=== PATIENT | female | born 1945 | race Caucasian/White ===

== ENCOUNTER 2019-05-14 15:16 | Inpatient (IN) | payer OTHER ==
[~2019-05-14] VITALS: Ht 170.2 cm; Wt 86.7 kg
[2019-05-14 16:07] LABS: Basophils # (auto) 0.1 uL; Basophils % (auto) 0.3 % (0.0-2.0); Eosinophils # (auto) 0 uL; Hematocrit 52.2 % (36.0-46.0); Hemoglobin 17.1 g/dL (12.2-16.2); Mean Corpuscular Hemoglobin 31.7 pg (28.0-32.0); Mean Corpuscular Hgb Conc. 32.8 g/dL (32.0-36.0); Mean Corpuscular Volume 96.7 fL (80.0-100.0); Monocytes % (auto) 4.8 % (0.0-12.0); Neutrophils # (auto) 15.9 uL; Neutrophils % (auto) 79.9 % (37.0-80.0); Nucleated Red Blood Cells % 0.1 %; Platelet Count (auto) 259 10^3/uL (140-450); Red Cell Distribution Width 14.4 % (11.8-14.3); White Blood Cell 19.9 10^3/uL (4.4-10.8)
[2019-05-14] MEDS ORDERED: PROMETHAZINE HCL 25 MG/ML 1ML IV ONE (16:15)
[2019-05-14] MEDS ORDERED: HYDROmorphone HCL 2 MG/ML VL IV ONE ×2 (16:15→21:30)
[2019-05-14] MEDS ORDERED: SODIUM CHLORIDE 0.9% 1,000 ML IVB ONE (16:59)
[2019-05-14 17:11] LABS: Alanine Aminotransferase 15 U/L (13-56); Albumin 3.4 g/dL (3.4-5.0); Amylase 74 U/L (25-115); Anion Gap 15 (5-15); Aspartate Aminotransferase 15 U/L (15-37); BUN/Creatinine Ratio 17.3; Blood Urea Nitrogen 17 mg/dL (7-18); Carbon Dioxide 16 mmol/L (21-32); Chloride 105 mmol/L (98-107); GFR African American 72 mL/min; GFR Non-African American 59 mL/min; Glucose 195 mg/dL (74-106); Lipase 59 U/L (73-393); Potassium 4.2 mmol/L (3.5-5.1); Sodium 136 mmol/L (136-145)
[2019-05-14] MEDS ORDERED: cefTRIAXone 1GM/50ML D5W 50 ML IV ONE (17:15)
[2019-05-14] MEDS ORDERED: metroNIDAZOLE 500MG/100ML 100 ML IV ONE (17:15)
[2019-05-14 17:16] LABS: Alkaline Phosphatase 67 U/L (45-117); Bilirubin, Total 0.3 mg/dL (0.2-1.0); Total Protein 7.1 g/dL (6.4-8.2)
[2019-05-14 17:43] LABS: INR 0.99 (0.9-1.15)
[2019-05-14] MEDS ORDERED: OMNIPAQUE ORAL SOLN 500ml 12mg/ml PO ONE (17:48)
[2019-05-14] MEDS ORDERED: IOHEXOL 300 MG/ML 100ML BOTTLE IJ ONE (17:48)
[2019-05-14] MEDS ORDERED: ONDANSETRON HCL 4 MG/2 ML VIAL ONE (18:23)
[2019-05-14] MEDS ORDERED: ONDANSETRON HCL 4 MG/2 ML VIAL IV ONE ×2 (18:30→21:30)
[2019-05-14] MEDS ORDERED: SODIUM CHLORIDE 0.9% 1,000 ML IV ONE (18:45)
[2019-05-14] MEDS ORDERED: SODIUM CHLORIDE 0.9% 500 ML IV ONE (18:45)
[2019-05-14 23:01] LABS: Urine Bacteria NONE SEEN /hpf (None Seen); Urine Blood Negative /uL (Negative); Urine Mucus FEW (None Seen); Urine WBC 2 /hpf (0 - 5)
[2019-05-14 23:08] LABS: Urine Specific Gravity > 1.050 (1.001-1.035)
[2019-05-14] MEDS: NOREPINEPHRINE 8 MG/250ML KIT 250 ML IV SCH (23:26)
[2019-05-15] VITALS (55 sets, daily range): BP systolic 74–144; BP diastolic 41–64
[2019-05-15] MEDS ORDERED: MORPHINE SULFATE 4 MG/ML SYR/VIAL IV ONE ×2 (00:15→05:15)
[2019-05-15] MEDS ORDERED: ONDANSETRON HCL 4 MG/2 ML VIAL IV ONE ×2 (00:15→05:15)
[2019-05-15] MEDS ORDERED: SODIUM CHLORIDE 0.9% 1,000 ML IV ONE ×2 (00:30→11:00)
[2019-05-15 01:42] LABS: Lactic Acid w/Reflex 6.6 mmol/L (0.4-2.0)
[2019-05-15] MEDS ORDERED: PIPERACILLIN-TAZOB 3.375GM 100 ML IV ONE ×2 (03:00→07:15)
[2019-05-15] MEDS ORDERED: SODIUM BICARBONATE 8.4 % INJ 50ML VIAL IV ONE ×2 (04:30→15:15)
[2019-05-15 04:36] LABS: Basophils # (auto) 0.1 uL; Basophils % (auto) 0.3 % (0.0-2.0); Eosinophils # (auto) 0 uL; Hematocrit 55.1 % (36.0-46.0); Hemoglobin 17.2 g/dL (12.2-16.2); Lymphocytes % (auto) 10.2 % (10.0-50.0); Mean Corpuscular Hemoglobin 31.5 pg (28.0-32.0); Mean Corpuscular Hgb Conc. 31.2 g/dL (32.0-36.0); Mean Corpuscular Volume 100.8 fL (80.0-100.0); Monocytes # (auto) 1.7 uL; Monocytes % (auto) 8.6 % (0.0-12.0); Neutrophils # (auto) 15.7 uL; Neutrophils % (auto) 80.9 % (37.0-80.0); Nucleated Red Blood Cells % 0.1 %; Platelet Count (auto) 226 10^3/uL (140-450); Red Blood Cells 5.46 10^6/uL (4.0-5.20); Red Cell Distribution Width 15.5 % (11.8-14.3); White Blood Cell 19.5 10^3/uL (4.4-10.8)
[2019-05-15] MEDS: NOREPINEPHRINE 8 MG/250ML KIT 250 ML IV SCH (05:00)
[2019-05-15] MEDS ORDERED: ONDANSETRON HCL 4 MG/2 ML VIAL IV PRN ×2 (05:45→09:45)
[2019-05-15] MEDS ORDERED: VASOPRESSIN 20 UNIT/ML ONE ×2 (06:05)
[2019-05-15] MEDS: VASOPRESSIN 50 UNITS in D5W 5% 247.5 ML IV SCH (06:15)
[2019-05-15] MEDS: HEPARIN SODIUM (PORCINE) 5000 UNITS/ML 1ML VIAL SC SCH ×3 (06:30→22:00)
[2019-05-15] MEDS ORDERED: VANCOMYCIN PER PHARMACY 0 MG IV SCH ×2 (07:00)
[2019-05-15] MEDS ORDERED: DEXTROSE (50%) 50ML SYRG IV PRN (07:00)
[2019-05-15] MEDS: SODIUM CHLORIDE 0.9% 1,000 ML IV SCH ×3 (07:13→23:49)
[2019-05-15] MEDS: PHENYLEPHRINE INJ 20 MG in D5W 5% 250 ML IV SCH ×3 (07:15→23:43)
[2019-05-15 07:50] LABS: Albumin 2.6 g/dL (3.4-5.0); Calcium 7.5 mg/dL (8.5-10.1); Potassium 5.5 mmol/L (3.5-5.1)
[2019-05-15 07:53] LABS: BUN/Creatinine Ratio 15.9; Bilirubin, Total 0.3 mg/dL (0.2-1.0)
[2019-05-15] MEDS ORDERED: LIDOCAINE 1% (LOCAL ANESTH.) PF 5ml SDV ONE (08:59)
[2019-05-15] MEDS ORDERED: SUCCINYLCHOLINE CHLORIDE 20 MG/ML 10ML VIAL IV ONE (08:59)
[2019-05-15] MEDS ORDERED: VANCOMYCIN 1GM/250ML 250 ML IV SCH (09:00)
[2019-05-15] MEDS ORDERED: ROCURONIUM 10MG/ML 10ML VIAL IV ONE (09:41)
[2019-05-15] MEDS ORDERED: MIDAZOLAM HCL 1MG/1ML-2 ML VIAL ONE ×2 (09:41→10:41)
[2019-05-15] MEDS ORDERED: ETOMIDATE (2MG/ML) 20ML VIAL IV ONE (09:42)
[2019-05-15] MEDS ORDERED: MIDAZOLAM HCL 1MG/1ML-2 ML VIAL IV PRN (09:45)
[2019-05-15] MEDS ORDERED: HYDROmorphone HCL 2 MG/ML VL IV PRN (09:45)
[2019-05-15] MEDS ORDERED: metroNIDAZOLE 500MG/100ML 100 ML IV ONE (10:21)
[2019-05-15] MEDS ORDERED: fentaNYL CITRATE 100 MCG/2 ML VL ONE (10:32)
[2019-05-15] MEDS ORDERED: POVIDONE IODINE 5% TOPICAL CREAM TOP ONE (10:47)
--- NOTE | 2019-05-15 11:25 | NUR ---
POST OP PATIENT ACCEPTED. BEDSIDE REPORT RECEIVED ALONG WITH ANESTHESIOLOGIST. [id number] PATIENT ON MECHANICAL VENTILATOR, MODERATELY SEDATED FROM OR MEDS. ETT 7.0 22 LIP AC 14 TV 500 FI02 60% PEEP 5. LUNGS CLEAR THROUGHT OUT, EVEN, NON LABORED BREATHING NOTED. BP 140/61 FROM LEFT RADIAL ARTERIAL LINE, ON PRESSURE BAG, PT ON LEVOPHED AND VASOPRESSIN. SEE IV SPREADSHEET. HEART RATE SR. OG NOTED ORALLY, CONNECTED TO LIS, DARK THICK BLOODY SECRETIONS NOTED, WITH APPROX 25CC IN CANISTER, ABD SOFT, ABSENT BOWEL SOUNDS. SCHREIBER DRAINING TO GRAVITY, YELLOW CLEAR URINE APPROX 130CC IN BAG NOTED REPORTED FROM THIS A.M. SURGICAL DRESSING NOTED TO MID ABD, CDI. WITH ROLAND DRAIN NOTED, SEROSANGUINEOUS FLUID NOTED AND DRAINED 75CC. ALL EXTREMITIES NOTED TO HAVE WEAK PULSES, AND COLD TO TOUCH, BLANKET APPLIED TO PATIENT, CURRENT TEMP 98.9. ALL SKIN INTACT. PT TURNED SLIGHTLY TO RIGHT WITH SUPPORT OF PILLOW AND HEELS OFF LOADED. IV TO RIGHT IJ TLC CDI. LEFT HAND 18G INFUSING NS, PATENT AND INTACT. RIGHT WRIST 20G, PRESSURE NOTED DURING NS FLUSH. IV DC'D. CATHETER INTACT, PRESSURE APPLIED. SCD'S IN PLACE. PAGED TO OBTAIN SEDATION, PULMONARY CONSULT. CALLED BACK, NEW ORDERS IN PLACE.
[2019-05-15] MEDS: PROPOFOL 100 ML IV SCH (11:51)
[2019-05-15] MEDS ORDERED: PIPERACILLIN-TAZOB 3.375GM 100 ML IV SCH (12:00)
[2019-05-15] MEDS: InsuLIN REG 1unit/0.01ml Soln (100units/ml) SC SCH ×3 (12:00→23:53)
[2019-05-15] MEDS: ACCU-CHEK COMFORT CURVE STRIP VI SCH ×3 (12:00→23:53)
[2019-05-15] MEDS: MIDAZOLAM DRIP 50 mg/50mL 50 ML IV SCH ×3 (12:14→21:03)
[2019-05-15] MEDS: fentaNYL Drip 2500mCg/250mlNS 250 ML IV SCH (12:14)
--- NOTE | 2019-05-15 13:00 | NUR ---
NEURO STATUS/COMFORT PATIENT ON VERSED AND FENT GTT, SEE IV SPREADSHEET. SEDATION INCREASED SHE IS CALM- DROWSY. PT ATTEMPTING TO COMMUNICATE WITH HANDS, MOUTHING WORDS, INSTRUCTED PATIENT TO REFRAIN FROM TALKING AT THIS TIME SHE CAN CAUSE HARM, PT AGREED BUT CONTINUES TO ATTEMPT TO TALK. PT COUGHING AGAINST VENTILATOR AND WORSENING PAIN TO ABD. OCCASIONALLY PT NOT SYNCHRONIZED ON VENT. SEDATION INCREASED.
[2019-05-15] MEDS: PIPERACILLIN-TAZOB 3.375GM 100 ML IV SCH ×3 (13:50→23:53)
[2019-05-15] MEDS ORDERED: NOREPINEPHRINE 8 MG/250ML KIT 250 ML IV ONE (14:30)
--- NOTE | 2019-05-15 15:00 | NUR ---
PULMONARY CONSULT MD AT BEDSIDE AWARE OF F/U ABG. NEW ORDERS IN PLACE. R.T AWARE OF ETT TO BE ADVANCED.
[2019-05-15] MEDS: PANTOPRAZOLE 40 MG/10 ML VIAL INJ IV SCH (15:04)
[2019-05-15] MEDS: metroNIDAZOLE 500MG/100ML 100 ML IV SCH ×2 (15:05→22:20)
[2019-05-15] MEDS: FOLIC ACID 1 MG, MULTIPLE VITAMIN 10 ML, MAGNESIUM SULF SDV 50% 8 MEQ, THIAMINE INJ 100... INJ SCH ×5 (15:51)
--- NOTE | 2019-05-15 16:15 | NUR ---
MARKETING ANALYTICS SPECIALIST DR. QUILES AT BEDSIDE. MD UPDATED DAUGHTER KEYA AT BEDSIDE RE: PATIENTS CURRENTS STATUS. SEE MD ORDERS.
--- NOTE | 2019-05-15 16:20 | NUR ---
FUNCTIONAL ARCHITECT AT BEDSIDE DR. QUILES UPDATED ON PATIENTS STATUS. MD UPDATED DAUGHTER KEYA AT BEDSIDE. QUESTIONS AND CONCERNS ADDRESSED. SEE NEW ORDERS.
--- NOTE | 2019-05-15 17:29 | NUR ---
wardrobe technician at bedside.
[2019-05-15] MEDS: ALBUTEROL SULF 2.5 MG/0.5ML(0.5%) NEB SOLN NEB SCH (18:40)
--- NOTE | 2019-05-15 18:55 | NUR ---
ADMISSION QUESTIONS COMPLETED WITH DAUGHTER AT BEDSIDE. DAUGHTER STATING PATIENT HAS AN ADVANCED DIRECTIVE BUT IS AT HOME, DAUGHTER STATING SHE WILL BRING IN COPY IN A.M. SHE WILL ALSO BRING HOME MEDICATION LIST.
[2019-05-15] MEDS: NOREPINEPHRINE BITARTRATE 32 MG in D5W 5% 218 ML IV SCH (19:30)
[2019-05-15 19:40] LABS: Basophils # (auto) 0 uL; Basophils % (auto) 0.2 % (0.0-2.0); Eosinophils # (auto) 0 uL; Hematocrit 39.3 % (36.0-46.0); Hemoglobin 12.9 g/dL (12.2-16.2); Lymphocytes # (auto) 3.1 uL; Lymphocytes % (auto) 20.2 % (10.0-50.0); Mean Corpuscular Hemoglobin 31.9 pg (28.0-32.0); Mean Corpuscular Hgb Conc. 32.9 g/dL (32.0-36.0); Mean Corpuscular Volume 96.9 fL (80.0-100.0); Monocytes # (auto) 1.1 uL; Monocytes % (auto) 7.2 % (0.0-12.0); Neutrophils # (auto) 11.3 uL; Neutrophils % (auto) 72.4 % (37.0-80.0); Platelet Count (auto) 170 10^3/uL (140-450); Red Blood Cells 4.06 10^6/uL (4.0-5.20); Red Cell Distribution Width 14.5 % (11.8-14.3); White Blood Cell 15.5 10^3/uL (4.4-10.8)
[2019-05-15 19:55] LABS: INR 1.02 (0.9-1.15); Partial Thromboplastin Time 31.7 sec (23.64-32.05)
[2019-05-15 20:01] LABS: Albumin 1.9 g/dL (3.4-5.0); BUN/Creatinine Ratio 26.1; Calcium 6.4 mg/dL (8.5-10.1); Magnesium 1.5 mg/dL (1.6-2.6); Potassium 4.5 mmol/L (3.5-5.1)
[2019-05-15 20:03] LABS: Bilirubin, Total 0.2 mg/dL (0.2-1.0); Total Protein 4.6 g/dL (6.4-8.2)
--- NOTE | 2019-05-15 20:30 | NUR ---
FAMILY VISIT PT DAUGHTER TO UNIT. UPDATED ON PT CONDITION AND PLAN OF CARE. ALL QUESTIONS AND CONCERNS ADDRESSED.
[2019-05-15] MEDS ORDERED: MAGNESIUM SULFATE 1GM/100ML 100 ML IV ONE (20:45)
--- NOTE | 2019-05-15 20:45 | NUR ---
PAGE REVIEW OF LABS SHOWS MG+ 1.5 WITH OCCASIONAL PAC'S. MD SOLIZ PAGED. MD WARD RADIAL DRILL OPERATOR FOR PLASTIC FOR DR SOLIZ. UPDATED REGARDING CURRENT LABS. ORDERS RECEIVED.
--- NOTE | 2019-05-15 22:00 | NUR ---
REPORT GIVEN TO MISHA DUMONT
[2019-05-15 23:02] LABS: Urine Bacteria MOD /hpf (None Seen); Urine Blood Negative /uL (Negative); Urine Mucus FEW (None Seen); Urine Specific Gravity 1.031 (1.001-1.035); Urine WBC 6 /hpf (0 - 5)
[2019-05-15 23:13] LABS: Sodium Urine 13 mmol/L (40-220)
[2019-05-15 23:15] LABS: Creatinine, Urine 90 mg/dL (30.0-125.0)
[2019-05-16] VITALS (103 sets, daily range): BP systolic 78–153; BP diastolic 39–85
[2019-05-16] MEDS: ALBUTEROL SULF 2.5 MG/0.5ML(0.5%) NEB SOLN NEB SCH ×4 (00:48→18:48)
[2019-05-16] MEDS: MIDAZOLAM DRIP 50 mg/50mL 50 ML IV SCH ×2 (00:58→05:56)
[2019-05-16] MEDS: PHENYLEPHRINE INJ 20 MG in D5W 5% 250 ML IV SCH ×3 (02:58→08:45)
[2019-05-16 03:42] LABS: Basophils # (auto) 0 uL; Basophils % (auto) 0.2 % (0.0-2.0); Eosinophils # (auto) 0 uL; Eosinophils % (auto) 0.1 % (0.0-7.0); Hematocrit 36.2 % (36.0-46.0); Hemoglobin 11.9 g/dL (12.2-16.2); Lymphocytes # (auto) 3.1 uL; Lymphocytes % (auto) 18.3 % (10.0-50.0); Mean Corpuscular Hemoglobin 31.7 pg (28.0-32.0); Monocytes # (auto) 1.9 uL; Monocytes % (auto) 11.5 % (0.0-12.0); Neutrophils # (auto) 11.8 uL; Neutrophils % (auto) 69.9 % (37.0-80.0); Platelet Count (auto) 168 10^3/uL (140-450); Red Blood Cells 3.77 10^6/uL (4.0-5.20); Red Cell Distribution Width 14.2 % (11.8-14.3); White Blood Cell 16.8 10^3/uL (4.4-10.8)
[2019-05-16 04:00] LABS: Albumin 1.8 g/dL (3.4-5.0); Calcium 6.3 mg/dL (8.5-10.1); Potassium 4.4 mmol/L (3.5-5.1); Uric Acid 5.8 mg/dL (2.6-6.0)
[2019-05-16 04:03] LABS: Bilirubin, Total 0.2 mg/dL (0.2-1.0); Phosphorus 3.4 mg/dL (2.5-4.90); Total Protein 4.5 g/dL (6.4-8.2)
[2019-05-16] MEDS: VASOPRESSIN 50 UNITS in D5W 5% 247.5 ML IV SCH (05:45)
[2019-05-16] MEDS: metroNIDAZOLE 500MG/100ML 100 ML IV SCH ×3 (05:55→21:58)
[2019-05-16] MEDS: PIPERACILLIN-TAZOB 3.375GM 100 ML IV SCH ×3 (05:55→18:00)
[2019-05-16] MEDS: HEPARIN SODIUM (PORCINE) 5000 UNITS/ML 1ML VIAL SC SCH ×3 (05:56→21:57)
[2019-05-16] MEDS: InsuLIN REG 1unit/0.01ml Soln (100units/ml) SC SCH ×3 (06:00→18:32)
[2019-05-16] MEDS: ACCU-CHEK COMFORT CURVE STRIP VI SCH ×3 (06:00→18:32)
--- NOTE | 2019-05-16 06:46 | NUR ---
Respiratory note: RECEIVED PATIENT ON V20 V200 VENT ORALLY INTUBATED WITH A 7.0 ETT SECURED VIA HOWARD AT THE 23CM MARKING AT THE LIP, AND MECHANICALLY VENTILATED WITH THE CHARTED SETTINGS. SPO2 97%, LUNG SOUNDS CLEAR T/O, NO SECRETIONS WHEN SUCTIONED. SKIN IS COOL/DRY TO THE TOUCH AND IS INTACT NEAR HOWARD SITE. THERE IS A NGT IN THE RIGHT NARE AND SECURED TO THE ETT, A TRIPLE LUMEN CENTRAL LINE IS PLACED IN THE RIGHT IJ, NON PITTING EDEMA NOTED IN BILATERAL UPPER EXTREMITIES. THERE IS A LEFT RADIAL A-LINE IN PLACE AND IT IS PATENT. LOWER EXTREMITIES ARE SHOWING NO SIGNS OF EDEMA. LEG SEQUENTIALS ARE IN PLACE AND OPERATIONAL. NO NEW AM CXR TO ASSESS. PATIENT IS UNRESPONSIVE TO BOTH VERBAL/TACTILE STIMULI AND IS SEDATED ON VERSED AND FENTANYL DRIPS. SHE IS RESTING COMFORTABLY AND TOLERATING VENT WELL, NO CHANGES MADE. VENT PLUGGED INTO RED OUTLET AND ALL ALARMS ARE SET AND AUDIBLE. WILL CONTINUE TO ASSESS PATIENT WELL VENTILATOR FUNCTION. [employer] RUN INLINE.
--- NOTE | 2019-05-16 08:30 | NUR ---
PATIENTS DAUGHTER EDILBERTO AT BEDSIDE UPDATED ON CURRENT STATUS AND PLAN OF CARE
[2019-05-16] MEDS ORDERED: PHENYLEPHRINE IV 250 ML IV ONE (08:45)
--- NOTE | 2019-05-16 08:50 | NUR ---
DR FIGUEROA PHYSICIAN ESTIMATOR PAPERBOARD BOXES AT BEDSIDE DISCUSSED PLAN OF CARE WITH PATIENTS DAUGHTER
--- NOTE | 2019-05-16 09:11 | NUR ---
SEDATION VACATION HELD AT THIS TIME PATIENT NOT HEMODYNAMICALLY STABLE Addendum: 05/16/19 at 0912 by Eleni Garcia RN Amended: Links added.
--- NOTE | 2019-05-16 09:13 | NUR ---
DR SOLIZ AT BEDSIDE DISCUSSED PLAN OF CARE WITH PATIENTS DAUGHTERS
[2019-05-16] MEDS: SODIUM CHLORIDE 0.9% 1,000 ML IV SCH ×3 (09:43→20:43)
[2019-05-16] MEDS ORDERED: TPN PER PHARMACY 0 ML IV SCH (09:45)
[2019-05-16 09:52] LABS: Magnesium 1.9 mg/dL (1.6-2.6)
[2019-05-16 09:55] LABS: Pre Albumin 12.4 mg/dL (20.0-40.0)
--- NOTE | 2019-05-16 10:37 | NUR ---
SPOKE WITH DR AYALA RECEIVED NEW ORDERS, WILL START DECREASING SEDATION PATIENT TOLERATES FOR POSSIBLE CPAP TRAIL
[2019-05-16] MEDS ORDERED: SODIUM BICARBONATE 8.4 % INJ 50ML VIAL IV ONE (10:45)
[2019-05-16] MEDS: PANTOPRAZOLE 40 MG/10 ML VIAL INJ IV SCH (11:15)
[2019-05-16] MEDS: VANCOMYCIN 1GM/250ML 250 ML IV SCH (11:15)
[2019-05-16] MEDS: PROPOFOL 100 ML IV SCH (11:20)
--- NOTE | 2019-05-16 11:33 | NUR ---
SPOKE WITH DR. BRENNEN ARTHUR TO CPAP FROM SURGICAL POINT OF VIEW
[2019-05-16] MEDS: fentaNYL Drip 2500mCg/250mlNS 250 ML IV SCH (11:51)
--- NOTE | 2019-05-16 11:54 | NUR ---
NUTRITION CONSULT/ASSESSMENT NOTES Please refer to link notes of nutrition screen form filed under the intervention section of the plan of care for further details. Est. Needs: 1700 kcal to 2100 kcal (20-25 kcal/kgBW), 85 gms to 102 gms pro (1.0-1.2 gms/kgBW). Will continue to monitor pertinent labs and reassess nutrient need prn Thank you for this consult. Addendum: 05/16/19 at [address] Amended: Links added.
[2019-05-16] MEDS ORDERED: CALCIUM GLUC 4.65meq/50ml D5AE 50 ML IV ONE (13:00)
[2019-05-16] MEDS: FOLIC ACID 1 MG, MULTIPLE VITAMIN 10 ML, MAGNESIUM SULF SDV 50% 8 MEQ, THIAMINE INJ 100... INJ SCH ×5 (13:00)
--- NOTE | 2019-05-16 13:50 | NUR ---
Pt is a 74 yr old female on a vent. Pt's daughter Jennifer was bedside and answered questions, contact info [phone]. Prior to admit, pt lives with her nephew, was ambulatory, and independent with ADL's, cooking and cleaning. Pt has a lot of supportive family in the area. Pt's daughter reported that the pt's condition has been improving. Pt utilizes a shower chair and commode in home. Pt's Primary is Dr Alec Sibley. Pt's other daughter is bringing in the Living will and AD. D/C needs will be further assessed closer to d/c. Addendum: 05/16/19 at 1357 by SANDRA BAL Amended: Links added.
--- NOTE | 2019-05-16 14:00 | NUR ---
VERSED OFF, FOR POSSIBLE CPAP TRIAL
--- NOTE | 2019-05-16 15:00 | NUR ---
DR AYALA AT BEDSIDE MD DISCUSSED PLAN OF CARE WITH PATIENTS DAUGHTER, NEW ORDERS RECEIVED AND IMPLEMENTED
--- NOTE | 2019-05-16 15:44 | NUR ---
Respiratory note: VENT CHANGES MADE: MODE CHANGED TO SIMV, RATE DECREASED TO 14, VT INCREASED TO 500, PS [address] AYALA'S TELEPHONE ORDER. TIM MANDEL MADE AWARE OF CHANGES. SPO2 99%, LUNG SOUNDS CLEAR T/O. PATIENT TOLERATING VENT MODE CHANGE WELL.
--- NOTE | 2019-05-16 16:00 | NUR ---
DR QUILES AT BEDSIDE DISCUSSED PLAN OF CARE WITH PATIENTS FAMILY AT BEDSIDE
[2019-05-16] MEDS: NOREPINEPHRINE BITARTRATE 32 MG in D5W 5% 218 ML IV SCH (16:22)
[2019-05-16] MEDS ORDERED: BUMETANIDE 1mg/4ml VIAL (0.25mg/ml) IV ONE (16:45)
[2019-05-16] MEDS ORDERED: BUMETANIDE 2.5mg/10ml (0.25 mg/ml) INJ IV ONE (18:45)
--- NOTE | 2019-05-16 19:45 | NUR ---
Patient bathe/linen change Patient given complete chlorhexidine wipes bath. Skin integrity assessed for any changes. Linens changed. Patient repositioned for comfort.
[2019-05-16] MEDS ORDERED: DEXTROSE (50%) 50ML SYRG IV SCH (20:00)
[2019-05-16] MEDS ORDERED: TPN PER PHARMACY IV NR ×6 (20:00)
--- NOTE | 2019-05-16 21:15 | NUR ---
PHARMACY TALKED TO PHARMACIST REGARDING HEPARIN Q8H ORDER AND PATIENT HAD ABDOMINAL SURGERY YESTERDAY. PHARMACIST SAID IT IS OKAY TO GIVE HEPARIN 5000UNITS SUB Q Q8H FOR DVT PROPHYLAXIS BUT WATCH FOR BLEEDING. PATIENT HAS NO BLEEDING NOW. NGT DRAINING WITH DARK GREEN FLUID AND ROLAND DRAINING WITH SEROSANGUINEOUS FLUID.
[2019-05-17] VITALS (100 sets, daily range): BP systolic 71–169; BP diastolic 37–141
[2019-05-17] MEDS: PIPERACILLIN-TAZOB 3.375GM 100 ML IV SCH ×5 (00:19→23:45)
[2019-05-17] MEDS: ACCU-CHEK COMFORT CURVE STRIP VI SCH ×5 (00:23→23:48)
[2019-05-17] MEDS: InsuLIN REG 1unit/0.01ml Soln (100units/ml) SC SCH ×5 (00:23→23:47)
[2019-05-17] MEDS: ALBUTEROL SULF 2.5 MG/0.5ML(0.5%) NEB SOLN NEB SCH ×4 (00:30→18:44)
[2019-05-17] MEDS: PHENYLEPHRINE INJ 20 MG in D5W 5% 250 ML IV SCH ×3 (00:55→17:24)
[2019-05-17] MEDS: VANCOMYCIN 1GM/250ML 250 ML IV SCH ×2 (03:43→21:38)
[2019-05-17] MEDS: VASOPRESSIN 50 UNITS in D5W 5% 247.5 ML IV SCH (05:45)
[2019-05-17] MEDS: metroNIDAZOLE 500MG/100ML 100 ML IV SCH ×3 (06:13→21:38)
[2019-05-17] MEDS: HEPARIN SODIUM (PORCINE) 5000 UNITS/ML 1ML VIAL SC SCH ×3 (06:14→21:44)
[2019-05-17] MEDS: SODIUM CHLORIDE 0.9% 1,000 ML IV SCH ×3 (06:16→19:43)
[2019-05-17 07:06] LABS: Basophils # (auto) 0 uL; Basophils % (auto) 0.3 % (0.0-2.0); Eosinophils # (auto) 0 uL; Eosinophils % (auto) 0.2 % (0.0-7.0); Hematocrit 29.6 % (36.0-46.0); Hemoglobin 9.9 g/dL (12.2-16.2); Lymphocytes # (auto) 2.3 uL; Lymphocytes % (auto) 18.4 % (10.0-50.0); Mean Corpuscular Hemoglobin 32.2 pg (28.0-32.0); Mean Corpuscular Hgb Conc. 33.4 g/dL (32.0-36.0); Mean Corpuscular Volume 96.2 fL (80.0-100.0); Monocytes # (auto) 0.9 uL; Monocytes % (auto) 7.2 % (0.0-12.0); Neutrophils # (auto) 9.2 uL; Neutrophils % (auto) 73.9 % (37.0-80.0); Platelet Count (auto) 135 10^3/uL (140-450); Red Blood Cells 3.07 10^6/uL (4.0-5.20); White Blood Cell 12.4 10^3/uL (4.4-10.8)
[2019-05-17 07:22] LABS: Bilirubin, Total 0.2 mg/dL (0.2-1.0); Total Protein 4.7 g/dL (6.4-8.2)
[2019-05-17 07:28] LABS: Albumin 1.6 g/dL (3.4-5.0); Calcium 6.8 mg/dL (8.5-10.1); Potassium 3.4 mmol/L (3.5-5.1)
[2019-05-17 07:29] LABS: Magnesium 1.8 mg/dL (1.6-2.6); Phosphorus 1.8 mg/dL (2.5-4.90)
[2019-05-17] MEDS ORDERED: POTASSIUM PHOSPHATE 44 MEQ in D5W 5% 250 ML IV ONE (08:30)
--- NOTE | 2019-05-17 08:50 | NUR ---
PATIENTS DAUGHTER STEFFANIE AT BEDSIDE UPDATED ON PATIENTS STATUS AND PLAN OF CARE
--- NOTE | 2019-05-17 09:37 | NUR ---
DR QUILES AT BEDSIDE DISCUSSED PLAN OF CARE WITH PATIENTS DAUGHTER STEFFANIE
--- NOTE | 2019-05-17 09:59 | NUR ---
DR SOLIZ AT BEDSIDE DISCUSSED PLAN OF CARE WITH PATIENTS DAUGHTER
--- NOTE | 2019-05-17 10:29 | NUR ---
DR HUTTON AT BEDSIDE DISCUSSED PLAN OF CARE WITH PATIENT AND PATIENTS DAUGHTER
[2019-05-17] MEDS ORDERED: POTASSIUM CHLORIDE 60 MEQ, LIDOCAINE 1% (LOCAL ANESTH.) 6 ML in SODIUM CHL 0.9% 500 ML IV ONE (10:30)
[2019-05-17] MEDS ORDERED: BUMETANIDE 1mg/4ml VIAL (0.25mg/ml) IV ONE (10:30)
--- NOTE | 2019-05-17 10:56 | NUR ---
PAGED DR AYALA FOR CPAP ABG RESULTS, AWAITING RETURN CALL
[2019-05-17] MEDS: fentaNYL Drip 2500mCg/250mlNS 250 ML IV SCH (11:19)
[2019-05-17] MEDS: MIDAZOLAM DRIP 50 mg/50mL 50 ML IV SCH (11:20)
[2019-05-17] MEDS: PROPOFOL 100 ML IV SCH (11:20)
[2019-05-17] MEDS ORDERED: BUMETANIDE 2.5mg/10ml (0.25 mg/ml) INJ IV ONE (11:30)
[2019-05-17] MEDS: PANTOPRAZOLE 40 MG/10 ML VIAL INJ IV SCH (11:32)
--- NOTE | 2019-05-17 11:45 | NUR ---
EXTUBATION RECEIVED ORDER TO EXTUBATE, PATIENT TOLERATED WELL, COOL MIST MASK 40% APPLIED, VITALS REMAINED STABLE. EDUCATED PATIENT IMPORTANCE OF NOT TALKING AT THIS TIME. PATIENT NODDED IN UNDERSTANDING, WILL CONTINUE TO MONITOR CLOSELY
--- NOTE | 2019-05-17 13:42 | NUR ---
DR AYALA AT BEDSIDE DISCUSSED PLAN OF CARE WITH PATIENT. NO NEW ORDERS AT THIS TIME
[2019-05-17] MEDS: FOLIC ACID 1 MG, MULTIPLE VITAMIN 10 ML, MAGNESIUM SULF SDV 50% 8 MEQ, THIAMINE INJ 100... INJ SCH ×5 (14:49)
--- NOTE | 2019-05-17 15:30 | NUR ---
PAIN PATIENT COMPLAINING OF PAIN 8/10 IN ABDOMEN. WILL MEDICATE ORDERED
[2019-05-17] MEDS: MORPHINE SULFATE 4 MG/ML SYR/VIAL IV PRN ×3 (15:38→23:48)
[2019-05-17] MEDS: NOREPINEPHRINE BITARTRATE 32 MG in D5W 5% 218 ML IV SCH (16:22)
--- NOTE | 2019-05-17 19:15 | NUR ---
Initial Assessment Patient received laying on bed watching television. Patient is awake, alert, and oriented x4 with no s/s of distress noted. C/O pain 8/10 and will medicate per MD order. RR even and unlabored with equal rise and fall on 2L o2 via N/C. NGT connected to LIS draining small amount of dark green colored bile.HOB elevated to 30 degrees. Patient has productive cough with clear/thin phlegm. Left radial arterial line present with dressing CDI. Line leveled and zeroed with good waveform. Neurovascular status is intact with palpable distal pulses x4 extremities, skin warm to touch, capillary refill brisk. Mid-abdominal incision dressing CDI, ROLAND to bulb suction draining serosanguineous fluid. ABD binder intact. Abd soft and tender. F/C intact and draining to gravity, SCD's intact to BLE. patient educated about how to use the call light and encouraged to call when needing any assistance and patient verbalized understanding. Bed in lowest position, side rails up, bed brakes set, bed alarm set, call light and side table are within reach. All alarms audible. Continue close monitoring.
--- NOTE | 2019-05-17 19:32 | NUR ---
TPN TPN bag and tubing changed per 24 hour protocol.
--- NOTE | 2019-05-17 19:42 | NUR ---
Pain management Patient C/O pain and is requesting medication. no s/s of drowsiness or respiratory depression noted. Morphine administered per MD order. Patient tolerated well.
[2019-05-17] MEDS ORDERED: TPN PER PHARMACY IV NR ×11 (20:00)
--- NOTE | 2019-05-17 22:00 | NUR ---
Hygiene patient given partial CHG bath. All linens and gown changed. Optifoam gentle adhesive dressing applied to sacral area to prevent friction and shear. Patient tolerated well.
--- NOTE | 2019-05-17 23:48 | NUR ---
Pain management Patient C/O pain and is requesting medication. no s/s of drowsiness or respiratory depression noted. Morphine administered per MD order. Patient tolerated well.
[2019-05-18] VITALS (96 sets, daily range): BP systolic 88–130; BP diastolic 37–59
--- NOTE | 2019-05-18 00:30 | NUR ---
Incisional care Abdominal and ROLAND incision sites cleansed with CHG Swabsticks and re-dressed with Primapore dressing. Incision sites are well approximated with no s/s of infection or dehiscence noted. Patient tolerated well.
[2019-05-18] MEDS: ALBUTEROL SULF 2.5 MG/0.5ML(0.5%) NEB SOLN NEB SCH ×4 (00:36→18:00)
--- NOTE | 2019-05-18 04:00 | NUR ---
Ongoing Assessment No changes or incidents to report. patient continues to rest with eyes closed, RR even and unlabored with equal rise and fall. Awakens easily to verbal stimuli. No S/S of distress. HOB elevated. Incision sites remain benign, ROLAND remains to bulb suction with small amount of drainage. Abd remains soft. Abdominal binder intact. Neurovascular status remains intact with palpable distal pulses x4 extremities, skin warm to touch. All fall and safety precautions intact. All vitals stable. Continue close monitoring.
[2019-05-18 04:08] LABS: Basophils # (auto) 0 uL; Basophils % (auto) 0.2 % (0.0-2.0); Eosinophils # (auto) 0.1 uL; Eosinophils % (auto) 0.5 % (0.0-7.0); Hemoglobin 8.7 g/dL (12.2-16.2); Lymphocytes # (auto) 2.4 uL; Lymphocytes % (auto) 21.1 % (10.0-50.0); Mean Corpuscular Hemoglobin 32.1 pg (28.0-32.0); Mean Corpuscular Hgb Conc. 33.5 g/dL (32.0-36.0); Mean Corpuscular Volume 95.7 fL (80.0-100.0); Monocytes # (auto) 0.8 uL; Monocytes % (auto) 6.6 % (0.0-12.0); Neutrophils # (auto) 8.2 uL; Neutrophils % (auto) 71.6 % (37.0-80.0); Platelet Count (auto) 132 10^3/uL (140-450); Red Blood Cells 2.72 10^6/uL (4.0-5.20); Red Cell Distribution Width 14.3 % (11.8-14.3); White Blood Cell 11.4 10^3/uL (4.4-10.8)
[2019-05-18 04:48] LABS: Albumin 1.6 g/dL (3.4-5.0); Calcium 7.4 mg/dL (8.5-10.1); Potassium 3.8 mmol/L (3.5-5.1)
[2019-05-18 04:52] LABS: BUN/Creatinine Ratio 20.7; Bilirubin, Total 0.3 mg/dL (0.2-1.0); Phosphorus 1.6 mg/dL (2.5-4.90); Total Protein 4.7 g/dL (6.4-8.2)
[2019-05-18] MEDS: PIPERACILLIN-TAZOB 3.375GM 100 ML IV SCH ×2 (05:17→12:15)
[2019-05-18] MEDS: metroNIDAZOLE 500MG/100ML 100 ML IV SCH ×3 (05:17→21:31)
[2019-05-18] MEDS: ACCU-CHEK COMFORT CURVE STRIP VI SCH ×4 (05:18→23:36)
[2019-05-18] MEDS: InsuLIN REG 1unit/0.01ml Soln (100units/ml) SC SCH ×4 (05:18→23:37)
[2019-05-18] MEDS: MORPHINE SULFATE 4 MG/ML SYR/VIAL IV PRN (05:20)
--- NOTE | 2019-05-18 05:20 | NUR ---
Pain management Patient C/O pain and is requesting medication. no s/s of drowsiness or respiratory depression noted. Morphine administered per MD order. Patient tolerated well.
[2019-05-18] MEDS: HEPARIN SODIUM (PORCINE) 5000 UNITS/ML 1ML VIAL SC SCH (05:23)
--- NOTE | 2019-05-18 07:03 | NUR ---
Report given No changes or incidents to report. Care endorsed to day shift RN.
[2019-05-18] MEDS: PHENYLEPHRINE INJ 20 MG in D5W 5% 250 ML IV SCH ×3 (07:53→18:35)
[2019-05-18] MEDS: VASOPRESSIN 50 UNITS in D5W 5% 247.5 ML IV SCH (07:53)
[2019-05-18] MEDS ORDERED: SODIUM PHOSP 40 MEQ in D5W 5% 250 ML IV ONE (08:30)
--- NOTE | 2019-05-18 09:00 | NUR ---
DR KELLER AT BEDSIDE NEW ORDERS PLACED
--- NOTE | 2019-05-18 09:05 | NUR ---
NG REMOVED NG TUBE FOUND OUT OF RIGHT NARE. PATIENT UNAWARE. RN TO PLACED ANOTHER NG AFTER PAIN MEDICATION ADMINISTERED AT PATIENTS REQUEST. DR KELLER MADE AWARE
[2019-05-18] MEDS: MORPHINE SULF INJ 2 MG/ML SYRINGE 1ML IV PRN ×6 (10:08→23:34)
--- NOTE | 2019-05-18 10:10 | NUR ---
Nasogastric tube insertion Patient educated on need for NG tube. All questions addressed. NGT inserted per MD order. Placement verified by aspiration of stomach contents AND auscultation. PATIENT TOLERATED WELL
[2019-05-18] MEDS: ENOXAPARIN SOD 40 MG/0.4 ML SYRINGE SC SCH (10:55)
[2019-05-18] MEDS: SODIUM CHLORIDE 0.9% 1,000 ML IV SCH (10:55)
[2019-05-18] MEDS: PANTOPRAZOLE 40 MG/10 ML VIAL INJ IV SCH (10:55)
--- NOTE | 2019-05-18 11:42 | NUR ---
Nutrition Follow-up Notes Wt.: 87.0 kg today. Pt's successfully extubated yesterday, on oxygen via nasal cannula, no immediate family member at bedside during rounds this earlier. Pt's with NGT to LIS in place, remains NPO currently on TPN @ 55 ml/hr providing 1460 kcal, 60 gms protein, 1220 NPCs and 14% Fat. Pt with fair PN support d/t mod initiation rate delivery of concentrated formula aeb current PN infusion meets 70% to 86% of est caloric needs, however meets 59% to 71% of est protein needs. Noted pt's to receive tonight another TPN @ 657 ml/hr to provide 1770 kcal, 70 gms protein, 1480 NPCs and 17% Fat. Est. Needs: 1700 kcal to 2100 kcal (20-25 kcal/kgBW), 85 gms to 102 gms pro (1.0-1.2 gms/kgBW). Will continue to monitor pertinent labs and reassess nutrient need prn Labs: Gluc 132 H, Ca 7.4 L, Phos 1.6 L, AST 12 L, ALT 11 L, Tpro 4.7 L, Alb 1.6 L, Prealb 12.4 L, Trig 84 wnl Skin: Nakul scale 14, risk,pt's medial surgical incision dry and intact per RN doc per supervisor asbestos removal. GI: Pt's no bowel activity since 05/14/19 per supervisor asbestos removal. PES: Partially resolved: Increased nutrient needs r/t acute/chronic medical condition aeb s/p surgery, intubated, sedated, severe hypoalbuminemia, NPO with PN support. Altered nutrition related lab values r/t current/chronic medical condition aeb hyperglycemia, hyperchloremia, hypocapnia, elev.renal labs, hypocalcemia and severe hypoalbuminemia Will continue to monitor NPO status, PN tolerance, pertinent labs, skin status and weight trends. F/u in 2 to 3 days. Rec: 1.) If still NPO with PN support, consider gradual increase on calories and protein to meet at least 75% if est nutrient needs. 2.) Advance gradually to oral diet when medically appropriate 3.) Refer pt to CDE/RD for further nutrition education and weight monitoring upon discharge. 4.) Continue current plan of care.
[2019-05-18] MEDS: FOLIC ACID 1 MG, MULTIPLE VITAMIN 10 ML, MAGNESIUM SULF SDV 50% 8 MEQ, THIAMINE INJ 100... INJ SCH ×5 (12:14)
--- NOTE | 2019-05-18 15:06 | NUR ---
SPOKE WITH DR KELLER REGARDING PHARMACY RECOMMENDATIONS ON ANTIBIOTIC COVERAGE. NEW ORDERS PLACED
[2019-05-18] MEDS: NOREPINEPHRINE BITARTRATE 32 MG in D5W 5% 218 ML IV SCH (16:22)
[2019-05-18] MEDS: LEVOFLOXACIN 500MG 100 ML IV SCH (18:22)
--- NOTE | 2019-05-18 19:00 | NUR ---
Initial Assessment Patient received laying on bed watching television. Patient is awake, alert, and oriented x4 with no s/s of distress noted. C/O pain 8/10 and will medicate per MD order. RR even and unlabored with equal rise and fall on room air. NGT connected to LIS draining small amount of dark green colored bile. RN verified proper placement via auscultation with air bolus. HOB elevated to 30 degrees. Patient has productive cough with clear/thin phlegm. Left radial arterial line present with dressing CDI. Line leveled and zeroed with good waveform. Neurovascular status is intact with palpable distal pulses x4 extremities, skin warm to touch, capillary refill brisk. Mid-abdominal incision dressing CDI, ROLAND to bulb suction draining serosanguineous fluid. ABD binder intact. Abd soft and tender. F/C intact and draining to gravity, SCD's intact to BLE. patient educated about how to use the call light and encouraged to call when needing any assistance and patient verbalized understanding. Bed in lowest position, side rails up, bed brakes set, bed alarm set, call light and side table are within reach. All alarms audible. Continue close monitoring.
--- NOTE | 2019-05-18 19:17 | NUR ---
Pain management Patient C/O pain and is requesting medication. no s/s of drowsiness or respiratory depression noted. Morphine administered per MD order. Patient tolerated well.
[2019-05-18] MEDS ORDERED: TPN PER PHARMACY IV NR ×11 (20:00)
--- NOTE | 2019-05-18 21:00 | NUR ---
Incentive Spirometer Patient educated about how to use the IS and encouraged to use it frequently. Patient demonstrated proper use and was able to get 750ml of inspired air on best effort.
--- NOTE | 2019-05-18 21:31 | NUR ---
Pain management Patient C/O pain and is requesting medication. no s/s of drowsiness or respiratory depression noted. Morphine administered per MD order. Patient tolerated well.
--- NOTE | 2019-05-18 22:00 | NUR ---
Incisional care mid-Abdominal and ROLAND incision site cleansed with CHG Swabsticks and re-dressed with Primapore dressing. Incision sites are well approximated with no s/s of infection or dehiscence noted. Patient tolerated well.
--- NOTE | 2019-05-18 23:34 | NUR ---
Pain management Patient C/O pain and is requesting medication. no s/s of drowsiness or respiratory depression noted. Morphine administered per MD order. Patient tolerated well.
[2019-05-19] VITALS (70 sets, daily range): BP systolic 97–148; BP diastolic 41–70
[2019-05-19] MEDS: ALBUTEROL SULF 2.5 MG/0.5ML(0.5%) NEB SOLN NEB SCH ×4 (00:09→18:00)
[2019-05-19] MEDS: SODIUM CHLORIDE 0.9% 1,000 ML IV SCH ×2 (00:13→14:54)
[2019-05-19] MEDS: MORPHINE SULF INJ 2 MG/ML SYRINGE 1ML IV PRN ×9 (01:39→23:48)
--- NOTE | 2019-05-19 01:39 | NUR ---
Pain management Patient C/O pain and is requesting medication. no s/s of drowsiness or respiratory depression noted. Morphine administered per MD order. Patient tolerated well.
[2019-05-19 03:56] LABS: Basophils # (auto) 0 uL; Basophils % (auto) 0.5 % (0.0-2.0); Eosinophils # (auto) 0.1 uL; Eosinophils % (auto) 0.9 % (0.0-7.0); Lymphocytes # (auto) 2.6 uL; Lymphocytes % (auto) 24.8 % (10.0-50.0); Mean Corpuscular Hemoglobin 33.3 pg (28.0-32.0); Mean Corpuscular Hgb Conc. 34.7 g/dL (32.0-36.0); Monocytes % (auto) 9.2 % (0.0-12.0); Neutrophils # (auto) 6.8 uL; Neutrophils % (auto) 64.6 % (37.0-80.0); Platelet Count (auto) 164 10^3/uL (140-450); Red Blood Cells 2.71 10^6/uL (4.0-5.20); White Blood Cell 10.5 10^3/uL (4.4-10.8)
[2019-05-19 04:22] LABS: Albumin 1.6 g/dL (3.4-5.0); Calcium 7.7 mg/dL (8.5-10.1); Potassium 3.8 mmol/L (3.5-5.1)
[2019-05-19 04:28] LABS: BUN/Creatinine Ratio 18.9; Bilirubin, Total 0.3 mg/dL (0.2-1.0); Phosphorus 2.8 mg/dL (2.5-4.90); Total Protein 4.9 g/dL (6.4-8.2)
[2019-05-19] MEDS: metroNIDAZOLE 500MG/100ML 100 ML IV SCH ×3 (05:13→22:00)
--- NOTE | 2019-05-19 05:13 | NUR ---
Pain management Patient C/O pain and is requesting medication. no s/s of drowsiness or respiratory depression noted. Morphine administered per MD order. Patient tolerated well.
[2019-05-19] MEDS: InsuLIN REG 1unit/0.01ml Soln (100units/ml) SC SCH ×3 (05:14→18:00)
[2019-05-19] MEDS: ACCU-CHEK COMFORT CURVE STRIP VI SCH ×3 (05:14→18:18)
--- NOTE | 2019-05-19 05:30 | NUR ---
Hygiene All linens and gown changed. Optifoam gentle adhesive dressing remains CDI sacral area to prevent friction and shear. Patient tolerated well.
--- NOTE | 2019-05-19 07:03 | NUR ---
Report given No changes or incidents to report. All vitals stable. All fall/safety precautions are intact. Care endorsed to day shift RN.
--- NOTE | 2019-05-19 07:30 | NUR ---
REPORT REPORT RECEIVED FROM JUAQUIN RNCHUCHO. BEDSIDE CHECK DONE.. PT AWAKE AND WATCHING TV, DENIES ANY PAIN OR SOB. CONTINUE TO MONITOR.
[2019-05-19] MEDS: PHENYLEPHRINE INJ 20 MG in D5W 5% 250 ML IV SCH ×2 (07:55→11:15)
--- NOTE | 2019-05-19 07:55 | NUR ---
ASSESSMENT PT AWAKE AND A/O X4. MOVES ALL EXTREMITIES ALTHOUGH PT WEAK. LUNGS CLEAR THROUGHOUT AND WITH O2 AT 2 L/M CVIA NC , O2 SAT OF 97%. TELE SR 82 .PALPABLE PULSES TO ALL EXTREMITIES. SCDS TO BLE. ABD SOFT AND TENDER TO THE TOUCH WITH NO BOWEL SOUNDS NOTED. LAST BM WAS 05/14. NGT TO THE RIGHT NARES, + PLACEMENT , AND TO LIS WITH DARK BILE FLUID DRAINING. MIDLINE DRESSING IS CLEAN AND DRY. ROLAND DRAIN EXITING FROM LOWER END OF DRESSING WITH SERSANGUINOUS FLUID DRAINING. REQUESTING PAIN MED FOR C/O MIDLINE ABD PAIN. DUE FOR MORPHINE. WILL GET AND ADMINISTER TO PT. TURNED FOR COMFORT TO HER LEFT SIDE. SKIN INTACT OTHER THAN SURGICAL INCISION. RAILS UP X4 AND BED IN LOW POSITION FOR PT SAFETY. CONTINUE TO MONITOR.
--- NOTE | 2019-05-19 08:52 | NUR ---
FAMILY BROUGHT TO THE BEDSIDE AND UPDATED ON THE PT'S CURRENT CONDITION. Addendum: 05/19/19 at 0910 by Tran Hagen RN ERROR WRONG PATIENT
--- NOTE | 2019-05-19 08:53 | NUR ---
PHYSICAL THERAPY PT AMBULATED WITH PHYSICAL THERAPY,USING WALKER AND ON PORTABLE O2 AND SENIOR COUNSEL COMMERCIAL. SHE AMBULATED TO THE DOORWAY OF ROOM 106 AND BACK TO HER ROOM AND THEN INTO THE CHAIR. PER PT, DISTANCE WAS APPROXIMATELY 50 FEET. TOLERATED WELL BY PT BUT SHE REFUSED TO WALK ANY FURTHER. Addendum: 05/19/19 at 0910 by Tran Hagen RN ERROR WRONG PATIENT
[2019-05-19] MEDS ORDERED: FOLIC ACID 1 mg/0.2ml INJECTION INJ SCH (10:00)
[2019-05-19] MEDS: THIAMINE 100mg/ml INJ (200mg/2ml VIAL) IV SCH (10:12)
[2019-05-19] MEDS: FOLIC ACID 1 MG in D5W 5% 50 ML IV SCH (10:14)
[2019-05-19] MEDS: PANTOPRAZOLE 40 MG/10 ML VIAL INJ IV SCH (10:14)
[2019-05-19] MEDS: ENOXAPARIN SOD 40 MG/0.4 ML SYRINGE SC SCH (10:15)
--- NOTE | 2019-05-19 12:55 | NUR ---
PAIN MEDICATED WITH MORPHINE 2 MG IV FOR C/O ABD INCISIONAL PAIN 04/18. PT LAYING IN BED WITH RAILS UP X4 AND BED IN LOW POSITION FOR PT SAFETY. CONTINUE TO MONITOR.
--- NOTE | 2019-05-19 15:15 | NUR ---
PT WITH C/O ABD PAIN, 04/18 AND ADMINISTERED MORPHINE 2 MG IVP PER MD ORDER.
[2019-05-19] MEDS: NOREPINEPHRINE BITARTRATE 32 MG in D5W 5% 218 ML IV SCH (16:22)
--- NOTE | 2019-05-19 16:40 | NUR ---
ARTERIAL LINE DC'D AND MANUAL PRESSURE APPLIED TO SITE X 10 MINUTES UNTIL NO BLEEDING NOTED AND PRESSURE DRESSING APPLIED. TOLERATED WELL BY PT.
--- NOTE | 2019-05-19 17:20 | NUR ---
MD/PHONE SPOKE WITH DR HILL REGARDING RECTAL TEMP OF 100.2. HE ORDERED FOR URINE CULTURE AND BLOOD CULTURES X2 IF TEMP > 100.4. UNABLE TO PUT ORDER IN COMPUTER SYSTEM TEMPORARILY DOWN. WILL INPUT SOON SYSTEM BACK UP. WILL NOTIFY RECEIVING RNRICHIE, WHEN PT TRANSPORTED TO NEW ROOM.
--- NOTE | 2019-05-19 17:30 | NUR ---
ICU patient trans to floor [id number] running NSR 95bpm. Right nares NGtube connected to intermittent suction. Faria catheter hanging below bladder, draining patent, closed system intact, no kinks. TPN administering at 65ml/hr to [facility]. Patient in chair with call light within reach, informed patient to call if need assistance. All patient personal belongings transferred with patient to receiving floor. Patient care transfered to TIM Palma.
--- NOTE | 2019-05-19 17:40 | NUR ---
TRANSPORTED PT TO ROOM #289A VIA WITH PERSONAL BELONGINGS AND ON PORTABLE LIQUID HYDROGEN PLANT OPERATOR. TRANSFERRED PT FROM TO RECLINER. RECEIVING RN, RICHIE, TO ROOM AND EXAMINING AND ASSISTING PT.
--- NOTE | 2019-05-19 17:53 | NUR ---
SYSTEM BACK UP AND ORDERS PLACED FOR URINE CULTURE AND BLOOD CULTURES.
[2019-05-19] MEDS ORDERED: MORPHINE SULF INJ 2 MG/ML SYRINGE 1ML ONE (18:06)
[2019-05-19] MEDS: LEVOFLOXACIN 500MG 100 ML IV SCH (18:12)
[2019-05-19] MEDS ORDERED: TPN PER PHARMACY IV NR ×11 (20:00)
[2019-05-20] MEDS: ACCU-CHEK COMFORT CURVE STRIP VI SCH ×4 (00:26→17:38)
[2019-05-20] MEDS: MORPHINE SULF INJ 2 MG/ML SYRINGE 1ML IV PRN ×5 (02:23→21:20)
[2019-05-20 05:00] VITALS: BP 88/48
[2019-05-20 05:06] LABS: Basophils # (auto) 0 uL; Basophils % (auto) 0.3 % (0.0-2.0); Eosinophils # (auto) 0.1 uL; Eosinophils % (auto) 1.2 % (0.0-7.0); Hematocrit 26.6 % (36.0-46.0); Hemoglobin 9.1 g/dL (12.2-16.2); Lymphocytes # (auto) 2.5 uL; Mean Corpuscular Hemoglobin 32.7 pg (28.0-32.0); Mean Corpuscular Hgb Conc. 34.3 g/dL (32.0-36.0); Mean Corpuscular Volume 95.5 fL (80.0-100.0); Monocytes # (auto) 1.3 uL; Neutrophils # (auto) 6.3 uL; Neutrophils % (auto) 61.5 % (37.0-80.0); Nucleated Red Blood Cells % 0.1 %; Platelet Count (auto) 193 10^3/uL (140-450); Red Blood Cells 2.78 10^6/uL (4.0-5.20); Red Cell Distribution Width 14.1 % (11.8-14.3); White Blood Cell 10.3 10^3/uL (4.4-10.8)
[2019-05-20 05:32] LABS: Magnesium 1.8 mg/dL (1.6-2.6)
[2019-05-20 05:38] LABS: Phosphorus 3.9 mg/dL (2.5-4.90); Pre Albumin 13.7 mg/dL (20.0-40.0)
[2019-05-20] MEDS: ALBUTEROL SULF 2.5 MG/0.5ML(0.5%) NEB SOLN NEB SCH ×4 (05:59→18:45)
[2019-05-20] MEDS: metroNIDAZOLE 500MG/100ML 100 ML IV SCH ×3 (06:13→21:19)
[2019-05-20] MEDS: InsuLIN REG 1unit/0.01ml Soln (100units/ml) SC SCH ×4 (06:29→17:38)
[2019-05-20 07:05] LABS: Albumin 1.7 g/dL (3.4-5.0); Calcium 7.9 mg/dL (8.5-10.1); Potassium 3.8 mmol/L (3.5-5.1)
[2019-05-20 07:10] LABS: BUN/Creatinine Ratio 21.2; Bilirubin, Total 0.3 mg/dL (0.2-1.0); Total Protein 5.1 g/dL (6.4-8.2)
[2019-05-20 08:30] VITALS: BP 102/56
[2019-05-20] MEDS: THIAMINE 100mg/ml INJ (200mg/2ml VIAL) IV SCH (10:16)
[2019-05-20] MEDS: ENOXAPARIN SOD 40 MG/0.4 ML SYRINGE SC SCH (10:16)
[2019-05-20] MEDS: SODIUM CHLORIDE 0.9% 1,000 ML IV SCH ×3 (10:25→20:09)
[2019-05-20] MEDS: PANTOPRAZOLE 40 MG/10 ML VIAL INJ IV SCH (10:45)
[2019-05-20] MEDS: FOLIC ACID 1 MG in D5W 5% 50 ML IV SCH (10:45)
--- NOTE | 2019-05-20 12:21 | NUR ---
Nutrition Follow-up Notes Wt.: 86.7 KG Pt's successfully extubated sleeping no immediate family member at bedside during rounds this earlier. Pt's remains NPO currently on TPN @ 69 ml/hr providing 1810 kcal, 80 gms protein, 1490 NPCs. Pt with adequate PN support d/t mod initiation rate delivery of concentrated formula aeb current PN infusion meets 86-106% of est caloric needs, and 78-94% of est protein needs. Est. Needs: 1700 kcal to 2100 kcal (20-25 kcal/kgBW), 85 gms to 102 gms pro (1.0-1.2 gms/kgBW). Will continue to monitor pertinent labs and reassess nutrient need prn Labs: GLU 138 H, CA 7.9 L, ALB 1.7 L, PREALB 13.7 H Skin: Nakul scale 15, mod risk,pt's medial surgical incision dry and intact per RN doc per ore miner blasting. GI: Pt's no bowel activity since 05/14/19 per ore miner blasting. PES: Partially resolved: Increased nutrient needs r/t acute/chronic medical condition aeb s/p surgery, intubated, sedated, severe hypoalbuminemia, NPO with PN support. Altered nutrition related lab values r/t current/chronic medical condition aeb hyperglycemia, hyperchloremia, hypocapnia, elev.renal labs, hypocalcemia and severe hypoalbuminemia Will continue to monitor NPO status, PN tolerance, pertinent labs, skin status and weight trends. F/u in 2 to 3 days. Rec: 1.) If still NPO with PN support, consider gradual increase on calories and protein to meet at least 75% if est nutrient needs. 2.) Advance gradually to oral diet when medically appropriate 3.) Refer pt to CDE/RD for further nutrition education and weight monitoring upon discharge. 4.) Continue current plan of care.
[2019-05-20 12:30] VITALS: BP 106/60
--- NOTE | 2019-05-20 15:20 | NUR ---
PT IS UP ON CHAIR, PT TOLERATED IT WELL WITH MODERATE ASSIST.
--- NOTE | 2019-05-20 16:15 | NUR ---
PT HAD A BOWEL MOVEMENT, SOFT IN MODERATE AMOUNT.
--- NOTE | 2019-05-20 16:35 | NUR ---
CALLED DR. ROSAS AND MADE AWARE PT HAD A BOWEL MOVEMENT AND PT IS ASKING IF NG TUBE CAN BE DISCONTINUED, DR. ROSAS ORDERED TO CLAMP THE NG TUBE AND HE WILL DECIDE IF NG TUBE CAN BE REMOVED WHEN HE SEE THE PT.
[2019-05-20 16:57] VITALS: BP 95/51
--- NOTE | 2019-05-20 17:24 | NUR ---
ROLAND DRAIN OUTPUT TOTAL 140 ML SEROSANGUINEOUS FLUID NG TUBE TOTAL OUTPUT 300ML GREEN COLOR.
[2019-05-20] MEDS: LEVOFLOXACIN 500MG 100 ML IV SCH (17:38)
--- NOTE | 2019-05-20 19:10 | NUR ---
Opening Shift Note Assumed care of patient, awake and alert x4. No S/S of distress/SOB or pain. NG tube is clamped, milian is in place and draining yellow urine hung below bladder, ROLAND drain to medial lower abdomen is secured, dressing to abdomen is C/D/I with abdominal binder in place. Call light is within reach, side rails up x2, bed is in lowest position. Instructed on POC and to call for assist PRN. All questions and concerns answered, will continue to monitor for changes Q1hr and PRN.
[2019-05-20] MEDS ORDERED: TPN PER PHARMACY IV NR ×11 (20:00)
[2019-05-20 22:00] VITALS: BP 107/57
[2019-05-21] MEDS: ACCU-CHEK COMFORT CURVE STRIP VI SCH ×4 (00:03→18:02)
[2019-05-21] MEDS: MORPHINE SULF INJ 2 MG/ML SYRINGE 1ML IV PRN ×8 (00:03→20:42)
[2019-05-21 05:00] VITALS: BP 96/52
--- NOTE | 2019-05-21 05:20 | NUR ---
Total output from ROLAND drain was 70 mL of serosanguineous fluid.
[2019-05-21 05:36] LABS: Basophils # (auto) 0 uL; Basophils % (auto) 0.3 % (0.0-2.0); Eosinophils # (auto) 0.2 uL; Eosinophils % (auto) 1.5 % (0.0-7.0); Hematocrit 27.7 % (36.0-46.0); Hemoglobin 9.4 g/dL (12.2-16.2); Lymphocytes # (auto) 2.9 uL; Lymphocytes % (auto) 28.9 % (10.0-50.0); Mean Corpuscular Hemoglobin 32.7 pg (28.0-32.0); Mean Corpuscular Hgb Conc. 34.1 g/dL (32.0-36.0); Mean Corpuscular Volume 95.8 fL (80.0-100.0); Monocytes # (auto) 1.5 uL; Monocytes % (auto) 14.8 % (0.0-12.0); Neutrophils # (auto) 5.4 uL; Neutrophils % (auto) 54.5 % (37.0-80.0); Nucleated Red Blood Cells % 0.1 %; Platelet Count (auto) 247 10^3/uL (140-450); Red Blood Cells 2.89 10^6/uL (4.0-5.20); Red Cell Distribution Width 13.7 % (11.8-14.3); White Blood Cell 9.9 10^3/uL (4.4-10.8)
[2019-05-21] MEDS: ALBUTEROL SULF 2.5 MG/0.5ML(0.5%) NEB SOLN NEB SCH ×4 (05:41→19:15)
[2019-05-21 05:58] LABS: Potassium 3.7 mmol/L (3.5-5.1)
[2019-05-21] MEDS: InsuLIN REG 1unit/0.01ml Soln (100units/ml) SC SCH ×4 (05:59→18:00)
[2019-05-21] MEDS: metroNIDAZOLE 500MG/100ML 100 ML IV SCH ×3 (05:59→21:59)
[2019-05-21 06:17] LABS: Albumin 1.7 g/dL (3.4-5.0); BUN/Creatinine Ratio 26.9; Bilirubin, Total 0.2 mg/dL (0.2-1.0); Calcium 6.4 mg/dL (8.5-10.1); Magnesium 2.1 mg/dL (1.6-2.6); Phosphorus 3.4 mg/dL (2.5-4.90); Total Protein 5.2 g/dL (6.4-8.2)
[2019-05-21 08:30] VITALS: BP_SYST 100; BP_SYST 95; BP_DIAS 51; BP_DIAS 52
--- NOTE | 2019-05-21 09:44 | NUR ---
DR. ROSAS AT BEDSIDE, EVALUATING PT. PER MD; NGT TO BE DC'D AND START PT ON CLEAR LIQUIDS.
--- NOTE | 2019-05-21 10:00 | NUR ---
NGT DC'D, PT TOLERATED PROCEDURE WELL, TUBE INTACT.
[2019-05-21] MEDS: FOLIC ACID 1 MG in D5W 5% 50 ML IV SCH (10:17)
[2019-05-21] MEDS: ENOXAPARIN SOD 40 MG/0.4 ML SYRINGE SC SCH (10:17)
[2019-05-21] MEDS: THIAMINE 100mg/ml INJ (200mg/2ml VIAL) IV SCH (10:17)
[2019-05-21] MEDS: PANTOPRAZOLE 40 MG/10 ML VIAL INJ IV SCH (10:17)
[2019-05-21] MEDS: SODIUM CHLORIDE 0.9% 1,000 ML IV SCH (11:49)
[2019-05-21 12:30] VITALS: BP 95/51
--- NOTE | 2019-05-21 13:21 | NUR ---
PT HAS USED COMMODE TWICE IN SHIFT, TRANSFERS WITH MODERATE ASSIST, PT IS COMPLIANT WITH INCENTIVE SPIROMETER 500-1000 AT MOMENT. PT TOLERATES ACTIVITY WELL.
[2019-05-21 17:05] VITALS: BP 94/54
[2019-05-21] MEDS: LEVOFLOXACIN 500MG 100 ML IV SCH (18:01)
--- NOTE | 2019-05-21 18:20 | NUR ---
AFTERNOON MEDICATIONS PASSED, PT TOLERATED WELL. PT SAT FOR 1HOUR IN BEDSIDE CHAIR, TOLERATED WELL. PT ABLE TO TRANSFER WITH MODERATE ASSISTANCE. TOTAL OUTPUT FROM ROLAND DRAIN OF 65ML SEROUS SANGUINEOUS FLUID. ABDOMINAL MIDLINE INCISION DRESSING IN PLACE CDI; ABDOMEN SOFT WITH ACTIVE BOWEL SOUNDS TO ALL QUADRANTS. SCHREIBER CATHETER CARE COMPLETED WITH NEW STAT LOCK IN PLACE. CHARLES AREA HYGIENE PROVIDED AFTER BM. OPTIFOAM IN PLACE FOR BLANCHABLE REDNESS TO SACRAL AREA. PATIENT TOLERATED DIET WELL DURING SHIFT. BED LOCKED AND IN LOWEST POSITION, CALL LIGHT WITHIN REACH.
[2019-05-21] MEDS ORDERED: TPN PER PHARMACY IV NR ×11 (20:00)
[2019-05-21] MEDS ORDERED: SODIUM CHLORIDE 0.9% 1,000 ML IV SCH (20:00)
--- NOTE | 2019-05-21 20:00 | NUR ---
OPENING SHIFT NOTE: PATIENT IS PLEASANTLY RESTING IN BED. SHE DOES HAVE PAIN ASSOCIATED WITH HER ABDOMINAL INCISION. ROLAND DRAIN IS IN PLACE AND PATENT DRAINING RED SEROSANGUINEOUS FLUID . SCHREIBER IS IN PLACE DRAINING YELLOW URINE WITH NO COMPLAINTS OF DISCOMFORT. RIJ WAS REDRESSED FOR SECUREMENT. BED IS LOCKED IN LOWEST POSITION WITH SIDE RAILS UP X2. CALL LIGHT IS WITHIN REACH. WILL CONTINUE TO MONITOR.
[2019-05-21 20:38] VITALS: BP 112/54
[2019-05-21 22:00] VITALS: BP 93/45
[2019-05-22] MEDS: ACCU-CHEK COMFORT CURVE STRIP VI SCH ×3 (00:04→12:03)
[2019-05-22] MEDS: MORPHINE SULF INJ 2 MG/ML SYRINGE 1ML IV PRN ×5 (00:05→13:59)
[2019-05-22] MEDS: ALBUTEROL SULF 2.5 MG/0.5ML(0.5%) NEB SOLN NEB SCH ×3 (01:01→11:49)
[2019-05-22 03:48] VITALS: BP 93/45
[2019-05-22 05:00] VITALS: BP 93/54
[2019-05-22 05:36] LABS: Hematocrit 27.1 % (36.0-46.0); Mean Corpuscular Hemoglobin 32.1 pg (28.0-32.0); Mean Corpuscular Hgb Conc. 33.2 g/dL (32.0-36.0); Mean Corpuscular Volume 96.5 fL (80.0-100.0); Platelet Count (auto) 299 10^3/uL (140-450); Red Blood Cells 2.81 10^6/uL (4.0-5.20); White Blood Cell 11.8 10^3/uL (4.4-10.8)
[2019-05-22 05:47] LABS: Albumin 1.7 g/dL (3.4-5.0); Calcium 7.9 mg/dL (8.5-10.1); Magnesium 2.1 mg/dL (1.6-2.6); Potassium 4.1 mmol/L (3.5-5.1)
[2019-05-22 05:52] LABS: BUN/Creatinine Ratio 25.5; Bilirubin, Total 0.2 mg/dL (0.2-1.0); Phosphorus 3.3 mg/dL (2.5-4.90); Total Protein 5.3 g/dL (6.4-8.2)
[2019-05-22] MEDS: InsuLIN REG 1unit/0.01ml Soln (100units/ml) SC SCH ×3 (06:00→12:00)
[2019-05-22 06:13] LABS: Basophils % (manual) 0 (0.0-2.0); Blast Cells 0; Metamyelocytes % 0; Myelocytes % 0; Promyelocytes % 0; Reactive Lymphocytes 0
[2019-05-22] MEDS: metroNIDAZOLE 500MG/100ML 100 ML IV SCH ×2 (06:19→13:58)
[2019-05-22 07:26] LABS: Band Neutrophils % (manual) 6; Eosinophils % (manual) 2 (0-7); Lymphocytes % (manual) 24 (10.0-50.0); Monocytes % (manual) 12 (0-12)
[2019-05-22 09:00] VITALS: BP 92/49
[2019-05-22] MEDS ORDERED: METF-370 PO (09:14)
[2019-05-22] MEDS ORDERED: ATOR10TA52 PO (09:15)
[2019-05-22] MEDS ORDERED: LISI2.5T47 PO (09:15)
--- NOTE | 2019-05-22 09:20 | NUR ---
PATIENT AMBULATED TO DOOR AND BACK WITH TWO PERSON ASSIST
--- NOTE | 2019-05-22 09:33 | NUR ---
SCHREIBER CATHETER DISCONTINUED
[2019-05-22] MEDS: PANTOPRAZOLE 40 MG/10 ML VIAL INJ IV SCH (10:07)
[2019-05-22] MEDS: ENOXAPARIN SOD 40 MG/0.4 ML SYRINGE SC SCH (10:07)
[2019-05-22] MEDS: THIAMINE 100mg/ml INJ (200mg/2ml VIAL) IV SCH (10:07)
[2019-05-22] MEDS: FOLIC ACID 1 MG in D5W 5% 50 ML IV SCH (11:30)
[2019-05-22 13:00] VITALS: BP 83/52
[2019-05-22 14:17] VITALS: BP 116/63
--- NOTE | 2019-05-22 14:53 | NUR ---
REPORT GIVEN TO HELLEN AT [facility]. PATIENT GOING TO ROOM 305 BED 1 AND BEING PICKED UP AT APPROXIMATELY 4:15 PM
--- NOTE | 2019-05-22 15:42 | NUR ---
D/C planning Per consult for SNF placement for Physical therapy. Contacted [facility]:) Fax:) faxed medical records. Per Adriel from [facility] Pt has been accepted to room 305 bed 1. Contacted [facility]:) spoke to Shemar. Advised Shemar from [facility] to arrange transportation at 16:15 via [employer]. Informed TIM Perez. Advised RAVEN Campbell for authorization. Addendum: 05/22/19 at 1646 by FREDA LOVE Amended: Links added.
--- NOTE | 2019-05-22 16:12 | NUR ---
PATIENT TRANSFERRED TO [facility]. TRANSFERRED BY [facility]. ALL IV ACCESS DISCONTINUED. TELEMETRY REMOVED AND RETURNED TO TELEMETRY DEPARTMENT. ALL TRANSFER/DISCHARGE INSTRUCTIONS GIVEN. ALL TRANSFER/DISCHARGE PAPERWORK SIGNED.
== END 2019-05-22 16:15 | DRG 853 ==
LOC: ER 15:16 → EDBD 15:16 → TELE 15:17 → ICU WEST 05-15 09:50 → TELE-WESTW 05-19 17:15
PROVIDERS: ADMIT Hospitalist; ATTEND Hospitalist
PROC: 5A1945Z Respiratory Ventilation, 24-96 Consecutive Hours (ICD-10-PCS; principal; 2019-05-14)
PROC: 0BH17EZ Insertion of Endotracheal Airway into Trachea, Via Natural or Artificial Opening (ICD-10-PCS; 2019-05-14)
PROC: 0DBB0ZZ Excision of Ileum, Open Approach (ICD-10-PCS; 2019-05-15)
PROC: 0D1B0ZH Bypass Ileum to Cecum, Open Approach (ICD-10-PCS; 2019-05-15)
DX: A41.9 Sepsis, unspecified organism (principal); J96.00 Acute respiratory failure, unspecified whether with hypoxia or hypercapnia; R65.21 Severe sepsis with septic shock; K55.029 Acute infarction of small intestine, extent unspecified; K56.2 Volvulus; K56.609 Unspecified intestinal obstruction, unspecified as to partial versus complete obstruction; K55.9 Vascular disorder of intestine, unspecified; E11.52 Type 2 diabetes mellitus with diabetic peripheral angiopathy with gangrene; N17.9 Acute kidney failure, unspecified; E78.5 Hyperlipidemia, unspecified; I10 Essential (primary) hypertension; I71.4 Abdominal aortic aneurysm, without rupture; E11.22 Type 2 diabetes mellitus with diabetic chronic kidney disease; I12.9 Hypertensive chronic kidney disease with stage 1 through stage 4 chronic kidney disease, or unspecified chronic kidney disease; N18.2 Chronic kidney disease, stage 2 (mild); D75.1 Secondary polycythemia; K66.0 Peritoneal adhesions (postprocedural) (postinfection); N14.1 Nephropathy induced by other drugs, medicaments and biological substances; T50.8X5A Adverse effect of diagnostic agents, initial encounter; Y92.89 Other specified places as the place of occurrence of the external cause; Z90.710 Acquired absence of both cervix and uterus; Z90.49 Acquired absence of other specified parts of digestive tract
CPT/HCPCS: 36415; 36600; 71045; 74176; 74177; 80053; 80202; 81001; 82040; 82150; 82550; 82570; 82805; 82962; 83605; 83690; 83735; 84100; 84132; 84300; 84478; 84484; 84550; 85007; 85025; 85027; 85610; 85730; 86850; 86900; 86901; 87040; 87070; 87081; 87086; 87205; 93005; 93306; 94002; 94003; 94640; 96361; 96365; 96367; 96375; 97116; 97530; C9113; G0378; J0330; J0610; J0696; J1815; J1956; J2001; J2250; J2405; J2543; J2704; J3490; J7060; J7131

== ENCOUNTER 2021-02-21 21:04 | Inpatient (IN) | payer OTHER ==
[~2021-02-21] VITALS: Ht 167.6 cm; Wt 91.7 kg
[~2021-02-21 21:04] MED LIST: ATOR10TA52 PO; LISI2.5T47 PO; METF-370 PO
[2021-02-21] MEDS ORDERED: fentaNYL CITRATE 100 MCG/2 ML VL IV ONE (21:45)
[2021-02-21] MEDS ORDERED: ONDANSETRON HCL 4 MG/2 ML VIAL IV ONE (21:45)
[2021-02-21 22:10] LABS: Basophils # (auto) 0.1 10 ^3/uL (0-0.2); Basophils % (auto) 0.7 % (0.0-2.0); Eosinophils # (auto) 0.1 10 ^3/uL (0-0.8); Eosinophils % (auto) 0.6 % (0.0-7.0); Hematocrit 42.4 % (36.0-46.0); Hemoglobin 14.2 g/dL (12.2-16.2); Lymphocytes # (auto) 2.8 10 ^3/uL (0.4-5.4); Lymphocytes % (auto) 28.7 % (10.0-50.0); Mean Corpuscular Hemoglobin 31.4 pg (28.0-32.0); Mean Corpuscular Hgb Conc. 33.4 g/dL (32.0-36.0); Mean Corpuscular Volume 93.9 fL (80.0-100.0); Monocytes # (auto) 0.7 10 ^3/uL (0-1.3); Monocytes % (auto) 6.7 % (0.0-12.0); Neutrophils # (auto) 6.3 10 ^3/uL (1.6-8.6); Neutrophils % (auto) 63.3 % (37.0-80.0); Nucleated Red Blood Cells % 0.1 %; Red Blood Cells 4.51 10^6/uL (4.0-5.20); Red Cell Distribution Width 14.5 % (11.8-14.3); White Blood Cell 9.9 10^3/uL (4.4-10.8)
[2021-02-21 22:26] LABS: Albumin 3.5 g/dL (3.4-5.0); Anion Gap 7 (5-15); Blood Urea Nitrogen 17 mg/dL (7-18); Calcium 9.3 mg/dL (8.5-10.1); Carbon Dioxide 23 mmol/L (21-32); Chloride 110 mmol/L (98-107); Glucose 97 mg/dL (74-106); Potassium 3.8 mmol/L (3.5-5.1); Sodium 140 mmol/L (136-145)
[2021-02-21 22:30] LABS: Alanine Aminotransferase 23 U/L (13-56); Alkaline Phosphatase 64 U/L (45-117); Aspartate Aminotransferase 15 U/L (15-37); BUN/Creatinine Ratio 20.7; Bilirubin, Total 0.3 mg/dL (0.2-1.0); GFR African American 87 mL/min; GFR Non-African American 72 mL/min; Total Protein 7.5 g/dL (6.4-8.2)
[2021-02-21] MEDS ORDERED: MORPHINE SULFATE 4 MG/ML SYR/VIAL IV ONE (23:45)
[2021-02-22] VITALS (12 sets, daily range): BP systolic 102–123; BP diastolic 53–74
[2021-02-22] MEDS ORDERED: fentaNYL CITRATE 100 MCG/2 ML VL IV ONE (03:30)
[2021-02-22] MEDS ORDERED: MORPHINE SULF INJ 2 MG/ML SYRINGE 1ML IV PRN (06:15)
[2021-02-22] MEDS ORDERED: NITROGLYCERIN 0.4 MG SL TAB SL PRN (06:15)
[2021-02-22] MEDS ORDERED: ONDANSETRON HCL 4 MG/2 ML VIAL IV PRN ×2 (06:15→14:00)
[2021-02-22] MEDS ORDERED: SOD CHL 0.45% 1,000 ML IV ONE (06:15)
[2021-02-22] MEDS ORDERED: DEXTROSE (50%) 50ML SYRG IV PRN (06:30)
[2021-02-22 07:16] LABS: Basophils # (auto) 0.1 10 ^3/uL (0-0.2); Basophils % (auto) 0.7 % (0.0-2.0); Eosinophils # (auto) 0 10 ^3/uL (0-0.8); Eosinophils % (auto) 0.2 % (0.0-7.0); Hematocrit 39.7 % (36.0-46.0); Hemoglobin 13.2 g/dL (12.2-16.2); Lymphocytes # (auto) 2.3 10 ^3/uL (0.4-5.4); Lymphocytes % (auto) 21.1 % (10.0-50.0); Mean Corpuscular Hemoglobin 31.1 pg (28.0-32.0); Mean Corpuscular Hgb Conc. 33.3 g/dL (32.0-36.0); Mean Corpuscular Volume 93.2 fL (80.0-100.0); Monocytes # (auto) 0.9 10 ^3/uL (0-1.3); Neutrophils # (auto) 7.5 10 ^3/uL (1.6-8.6); Red Blood Cells 4.26 10^6/uL (4.0-5.20); Red Cell Distribution Width 14.4 % (11.8-14.3); White Blood Cell 10.7 10^3/uL (4.4-10.8)
[2021-02-22 07:27] LABS: Albumin 3.4 g/dL (3.4-5.0); Calcium 8.8 mg/dL (8.5-10.1); Potassium 4.2 mmol/L (3.5-5.1)
[2021-02-22 07:29] LABS: INR 0.96 (0.9-1.15)
[2021-02-22 07:31] LABS: BUN/Creatinine Ratio 22.7; Bilirubin, Total 0.3 mg/dL (0.2-1.0); Total Protein 7.2 g/dL (6.4-8.2)
[2021-02-22] MEDS: MORPHINE SULF INJ 2 MG/ML SYRINGE 1ML IV PRN ×2 (07:38→09:23)
[2021-02-22] MEDS ORDERED: HYDROcodone-ACET 10/325MG TAB PO PRN ×2 (10:30→13:45)
[2021-02-22] MEDS ORDERED: FAMOTIDINE (10MG/ML) 2ML VL IV ONE (11:23)
[2021-02-22] MEDS ORDERED: BUPIVACAINE 0.5% P/F INJ 10 ML VIAL ONE (11:23)
[2021-02-22] MEDS ORDERED: SUCCINYLCHOLINE CHLORIDE 20 MG/ML 10ML VIAL IV ONE (11:24)
[2021-02-22] MEDS ORDERED: ROCURONIUM 10MG/ML 10ML VIAL IV ONE (11:24)
[2021-02-22] MEDS ORDERED: MORPHINE SULF(PF) 0.5MG/ML 10ML VIAL ONE (11:26)
[2021-02-22] MEDS ORDERED: PROPOFOL 10 MG/ML 20 ML IV ONE (11:26)
[2021-02-22] MEDS ORDERED: MIDAZOLAM HCL 1MG/1ML-2 ML VIAL ONE (11:26)
[2021-02-22] MEDS ORDERED: PHENYLEPHRINE HCL 10 MG/ML VL ONE (11:26)
[2021-02-22] MEDS ORDERED: GLYCOPYRROLATE 0.2 MG/ML 1ML VIAL ONE (11:26)
[2021-02-22] MEDS ORDERED: ONDANSETRON HCL 4 MG/2 ML VIAL ONE (11:26)
[2021-02-22] MEDS ORDERED: ePHEDrine SULFATE 50 MG/ML AMP ONE (11:26)
[2021-02-22] MEDS ORDERED: fentaNYL CITRATE 100 MCG/2 ML VL ONE (11:26)
[2021-02-22] MEDS ORDERED: LIDOCAINE 2% (LOCAL ANESTH.) PF 5ml SDV ONE (11:26)
[2021-02-22] MEDS ORDERED: KETAMINE HCL 10 ML ONE (11:27)
[2021-02-22] MEDS: HYDROmorphone HCL 2 MG/ML VL IV PRN (11:30)
[2021-02-22] MEDS ORDERED: ASPI-498 OR (11:45)
[2021-02-22] MEDS ORDERED: CHOLTAB8 PO (11:45)
[2021-02-22] MEDS ORDERED: DIPH1TAB30 PO (11:49)
[2021-02-22] MEDS ORDERED: ceFAZolin 1GM/50ML 100 ML IV ONE (11:57)
[2021-02-22] MEDS: ACCU-CHEK COMFORT CURVE STRIP VI SCH ×2 (12:00→18:23)
[2021-02-22] MEDS: InsuLIN REG 1unit/0.01ml Soln (100units/ml) SC SCH ×2 (12:00→18:00)
[2021-02-22] MEDS ORDERED: ACETAMINOPHEN 325 MG TAB PO PRN (13:45)
[2021-02-22] MEDS: LACTATED RINGER'S 1,000 ML IV SCH ×2 (13:45→23:45)
[2021-02-22] MEDS: SODIUM CHLOR 0.9% PF (SALINE LOCK) 10ML VIAL/SYR IV SCH ×2 (14:00→21:42)
[2021-02-22] MEDS ORDERED: DexAMETHasone SOD PHOS 10MG/1ML VIAL INJ IV PRN (14:00)
[2021-02-22] MEDS ORDERED: NALOXONE HCL 0.4 MG/ML VIAL IV PRN (14:00)
[2021-02-22] MEDS ORDERED: ACCU-CHEK COMFORT CURVE STRIP VI ONE (14:00)
[2021-02-22] MEDS ORDERED: diphenhdrAMINE HCL 50 MG/1 ML VL IV PRN (14:00)
[2021-02-22] MEDS: ceFAZolin 1GM/50ML 50 ML IV SCH ×2 (15:30→21:42)
[2021-02-22] MEDS: ONDANSETRON HCL 4 MG/2 ML VIAL IV PRN (20:17)
[2021-02-22] MEDS: SENNA 8.6 MG TAB PO SCH (21:42)
[2021-02-23] VITALS (19 sets, daily range): BP systolic 91–120; BP diastolic 50–67
[2021-02-23] MEDS: ACCU-CHEK COMFORT CURVE STRIP VI SCH ×4 (00:16→18:24)
[2021-02-23] MEDS: InsuLIN REG 1unit/0.01ml Soln (100units/ml) SC SCH ×4 (06:00→18:00)
[2021-02-23] MEDS: SODIUM CHLOR 0.9% PF (SALINE LOCK) 10ML VIAL/SYR IV SCH ×3 (06:08→21:53)
[2021-02-23] MEDS: LACTATED RINGER'S 1,000 ML IV SCH (06:10)
[2021-02-23 06:18] LABS: Basophils # (auto) 0 10 ^3/uL (0-0.2); Basophils % (auto) 0.3 % (0.0-2.0); Eosinophils # (auto) 0.1 10 ^3/uL (0-0.8); Eosinophils % (auto) 0.6 % (0.0-7.0); Hematocrit 35.8 % (36.0-46.0); Hemoglobin 12.3 g/dL (12.2-16.2); Lymphocytes # (auto) 2.7 10 ^3/uL (0.4-5.4); Lymphocytes % (auto) 28.1 % (10.0-50.0); Mean Corpuscular Hemoglobin 32.2 pg (28.0-32.0); Mean Corpuscular Hgb Conc. 34.4 g/dL (32.0-36.0); Mean Corpuscular Volume 93.6 fL (80.0-100.0); Monocytes # (auto) 0.9 10 ^3/uL (0-1.3); Monocytes % (auto) 9.6 % (0.0-12.0); Neutrophils % (auto) 61.4 % (37.0-80.0); Red Blood Cells 3.82 10^6/uL (4.0-5.20); Red Cell Distribution Width 14.5 % (11.8-14.3); White Blood Cell 9.7 10^3/uL (4.4-10.8)
[2021-02-23 06:30] LABS: Calcium 8.4 mg/dL (8.5-10.1); Potassium 3.9 mmol/L (3.5-5.1)
[2021-02-23] MEDS: HYDROmorphone HCL 2 MG/ML VL IV PRN ×2 (07:15→13:00)
[2021-02-23] MEDS: LACTULOSE 20Gm/30ML SOLN PO SCH (10:16)
[2021-02-23] MEDS: ENOXAPARIN SOD 40 MG/0.4 ML SYRINGE SC SCH (10:17)
[2021-02-23] MEDS ORDERED: ENO40SY SC (10:20)
[2021-02-23] MEDS: HYDROcodone-ACET 10/325MG TAB PO PRN ×2 (16:10→21:54)
[2021-02-23] MEDS: SENNA 8.6 MG TAB PO SCH (21:53)
[2021-02-24] MEDS: ACCU-CHEK COMFORT CURVE STRIP VI SCH ×3 (00:35→11:33)
[2021-02-24] MEDS: HYDROmorphone HCL 2 MG/ML VL IV PRN ×2 (00:53→13:26)
[2021-02-24] MEDS: InsuLIN REG 1unit/0.01ml Soln (100units/ml) SC SCH ×3 (00:59→11:33)
[2021-02-24 05:12] VITALS: BP 116/55
[2021-02-24] MEDS: SODIUM CHLOR 0.9% PF (SALINE LOCK) 10ML VIAL/SYR IV SCH ×2 (06:09→14:00)
[2021-02-24] MEDS: HYDROcodone-ACET 10/325MG TAB PO PRN (09:36)
[2021-02-24] MEDS: ENOXAPARIN SOD 40 MG/0.4 ML SYRINGE SC SCH (09:51)
[2021-02-24] MEDS: LACTULOSE 20Gm/30ML SOLN PO SCH (09:51)
[2021-02-24] MEDS: ONDANSETRON HCL 4 MG/2 ML VIAL IV PRN (13:27)
[2021-02-24] MEDS ORDERED: ENOXAPARIN SOD 100 MG/1 ML SYRINGE SC SCH (22:00)
== END 2021-02-24 14:17 | DRG 481 ==
LOC: EDBD 21:04 → ER 21:04 → OVERFLOW 02-22 06:10 → INTOOBSV 02-22 06:10 → OBSVTOIN 02-22 06:10 → WEST WING 02-22 10:04 → TELE-WESTW 02-22 21:44
PROVIDERS: ADMIT Internal Medicine; ATTEND Internal Medicine
PROC: 0QS734Z Reposition Left Upper Femur with Internal Fixation Device, Percutaneous Approach (ICD-10-PCS; principal; 2021-02-22 12:12)
DX: S72.142A Displaced intertrochanteric fracture of left femur, initial encounter for closed fracture (principal); S22.060A Wedge compression fracture of T7-T8 vertebra, initial encounter for closed fracture; D62 Acute posthemorrhagic anemia; Z20.822 Contact with and (suspected) exposure to COVID-19; E11.9 Type 2 diabetes mellitus without complications; E66.9 Obesity, unspecified; E78.5 Hyperlipidemia, unspecified; F17.200 Nicotine dependence, unspecified, uncomplicated; I11.0 Hypertensive heart disease with heart failure; I50.9 Heart failure, unspecified; I71.4 Abdominal aortic aneurysm, without rupture; J44.9 Chronic obstructive pulmonary disease, unspecified; Z79.899 Other long term (current) drug therapy; Z79.84 Long term (current) use of oral hypoglycemic drugs; Z68.32 Body mass index [BMI] 32.0-32.9, adult; W18.39XA Other fall on same level, initial encounter; Y93.89 Activity, other specified; Y92.89 Other specified places as the place of occurrence of the external cause; Y99.8 Other external cause status
CPT/HCPCS: 36415; 71045; 73502; 74176; 76000; 80048; 80053; 82962; 84484; 85025; 85610; 86850; 86900; 86901; 87081; 87426; 93971; 96361; 96374; 96375; 96376; 97110; 97163; 97530; A4565; C1713; G0378; J0330; J0690; J2001; J2250; J2405; J2704; J3490

== ENCOUNTER 2021-03-02 22:51 | Emergency (ER) | payer OTHER ==
[~2021-03-02] VITALS: Ht 175.3 cm; Wt 83.9 kg
[~2021-03-02 22:51] MED LIST changes: +ASPI-498 OR; +CHOLTAB8 PO; +DIPH1TAB30 PO; +ENO40SY SC
[2021-03-03 03:44] LABS: Basophils # (auto) 0.1 10 ^3/uL (0-0.2); Eosinophils # (auto) 0.1 10 ^3/uL (0-0.8)
[2021-03-03 03:45] LABS: Basophils % (auto) 0.8 % (0.0-2.0); Eosinophils % (auto) 0.6 % (0.0-7.0); Hematocrit 35.2 % (36.0-46.0); Hemoglobin 12.1 g/dL (12.2-16.2); Lymphocytes # (auto) 3.2 10 ^3/uL (0.4-5.4); Lymphocytes % (auto) 20.2 % (10.0-50.0); Mean Corpuscular Hemoglobin 31.4 pg (28.0-32.0); Mean Corpuscular Hgb Conc. 34.3 g/dL (32.0-36.0); Mean Corpuscular Volume 91.7 fL (80.0-100.0); Monocytes # (auto) 1.6 10 ^3/uL (0-1.3); Monocytes % (auto) 10.3 % (0.0-12.0); Neutrophils # (auto) 10.6 10 ^3/uL (1.6-8.6); Neutrophils % (auto) 68.1 % (37.0-80.0); Nucleated Red Blood Cells % 0.2 %; Red Blood Cells 3.84 10^6/uL (4.0-5.20); Red Cell Distribution Width 14.3 % (11.8-14.3); White Blood Cell 15.6 10^3/uL (4.4-10.8)
[2021-03-03 04:02] LABS: Albumin 2.4 g/dL (3.4-5.0); Anion Gap 10 (5-15); BUN/Creatinine Ratio 27.3; Blood Urea Nitrogen 18 mg/dL (7-18); Calcium 8.9 mg/dL (8.5-10.1); Carbon Dioxide 22 mmol/L (21-32); Chloride 102 mmol/L (98-107); GFR African American 112 mL/min; GFR Non-African American 93 mL/min; Glucose 120 mg/dL (74-106); Lipase 43 U/L (73-393); Potassium 4.4 mmol/L (3.5-5.1); Sodium 134 mmol/L (136-145)
[2021-03-03 04:08] LABS: Alanine Aminotransferase 108 U/L (13-56); Alkaline Phosphatase 136 U/L (45-117); Aspartate Aminotransferase 43 U/L (15-37); Bilirubin, Total 0.6 mg/dL (0.2-1.0); Total Protein 7.3 g/dL (6.4-8.2)
[2021-03-03] MEDS ORDERED: IOHEXOL 300 MG/ML 100ML BOTTLE IJ ONE (04:54)
[2021-03-03] MEDS ORDERED: SODIUM CHLORIDE 0.9% 1,000 ML IV ONE (06:15)
[2021-03-03] MEDS ORDERED: DICYCLOMINE HCL (10MG/ML) 2 ML AMPULE IM ONE (06:15)
[2021-03-03] MEDS ORDERED: ACETAMINOPHEN 500 MG TAB PO ONE (06:15)
[2021-03-03] MEDS ORDERED: DOCUSATE SOD 100 MG CAP PO ONE (08:15)
[2021-03-03] MEDS ORDERED: ONDANSETRON HCL 4 MG/2 ML VIAL IV ONE (08:15)
[2021-03-03] MEDS ORDERED: MORPHINE SULF INJ 2 MG/ML SYRINGE 1ML IV ONE (08:15)
[2021-03-03] MEDS ORDERED: FLEET ENEMA(ADULT) 135 ML PR ONE (10:30)
[2021-03-03 14:00] VITALS: BP 113/64
== END 2021-03-03 14:47 ==
LOC: ER 22:51 → EDBD 22:51 → ER 03-03 14:47
DX: K59.00 Constipation, unspecified (principal); E11.9 Type 2 diabetes mellitus without complications; E78.5 Hyperlipidemia, unspecified; I10 Essential (primary) hypertension; Z98.890 Other specified postprocedural states; Z79.82 Long term (current) use of aspirin; Z79.899 Other long term (current) drug therapy
CPT/HCPCS: 36415; 74018; 74177; 80053; 83605; 83690; 83735; 83880; 84484; 85025; 85610; 96361; 96372; 96374; 96375; 99285; J0500; J2270; J2405; J7030; Q9967